=== PATIENT | female | born 1995 | race Caucasian/White ===

== ENCOUNTER 2017-06-29 02:39 | Emergency (ER) | payer SELFPAY ==
[~2017-06-29] VITALS: Ht 175.3 cm; Wt 121.0 kg
[~2017-06-29 02:39] MED LIST: IBUP800T23 PO
[2017-06-29 02:41] VITALS: BP 143/80; PULSE 65; RESP 16; TEMP 97.8; O2SAT 99
[2017-06-29 04:42] LABS: BACTERIA, URINE OCC /hpf; BLOOD, URINE NEG (NEG); GLUCOSE,URINE NEG (NEG); KETONE, URINE NEG (NEG); MUCUS URINE FEW /lpf (OCC); NITRITE,URINE NEG (NEG); PH, URINE 5.5 (5.0-8.5); SQUAMOUS EPITHELIAL CELL URINE 24 /hpf (0-5); URINE COLOR YELLOW (YELLW/STRAW)
[2017-06-29 04:43] LABS: COMMENT (UR) CULT NOT INDICATED; CULTURE IF INDICATED CULT NOT INDICATED
[2017-06-29] MEDS ORDERED: MACR100C2 PO (05:24)
--- NOTE | 2017-06-29 05:25 | PD ---
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 Patient does have prior history of STD. Patient denies . Patient states no menstrual cycle 6 months after being on control pills to regulate menstrual cycle. Patient has history of ovarian cyst. Patient rates pain as 5/10 in intensity. Patient's had no fever no chills no nausea no vomiting no cough no congestion no chest pain no palpitations no generalized abdominal pain no flank pain has experienced some dysuria and frequency and no urgency no hematuria denies abnormal vaginal bleeding but has noted vaginal discharge. Patient has taken no medications for symptoms. Patient decided since she had potentially been exposed to an STD to come to the emergency room at this time. [facility] Past Medical History Narrative Medical Heart murmur ovarian cyst tobacco use; S notes reviewed Cardiovascular Problems: Yes (HEART MURMER) Diminished Hearing: No Immunizations Current: Yes ?: Not : 0 Ovarian Cysts: Yes Past Surgical History Surgical History: No Previous Surgery Social History Alcohol Use: No Tobacco Use: Yes (2-3 CIGS DAILY) Substance Use: No Allergies-Medications (Allergen,Severity, Reaction): Coded Allergies: No Known Allergies (Verified , 06/29/17) Reported Meds & Prescriptions Reported Meds & Active Scripts Active Ibuprofen 800 Mg Tab 800 Mg PO Q8HR PRN Review of Systems Except as stated in HPI: all other systems reviewed are Neg General / Constitutional: No: Fever, Chills HENT: No: Congestion Cardiovascular: No: Chest Pain or Discomfort Respiratory: No: Shortness of Breath Gastrointestinal: Positive: Abdominal Pain, No: Nausea, Vomiting, Diarrhea Genitourinary: Positive: Frequency, Dysuria, Pelvic Pain, Discharge ( suprapubic pressure), No: Decreased Urinary Output, Vaginal Bleeding Musculoskeletal: No: Myalgias, Arthralgias Skin: No Rash Neurologic: No: Weakness Psychiatric: No: Anxiety Hematologic/Lymphatic: No: Lymph Node Enlargement Physical Exam Narrative GENERAL: Well-developed well-nourished female in no acute distress no respiratory distress SKIN: Warm and dry. HEAD: Normocephalic. EYES: No scleral icterus. No injection or drainage. NECK: Supple, trachea midline. No JVD or lymphadenopathy. CARDIOVASCULAR: Regular rate and rhythm without murmurs, gallops, or rubs. RESPIRATORY: Breath sounds equal bilaterally. No accessory muscle use. GASTROINTESTINAL: Abdomen soft, non-tender, nondistended. Pelvic exam: Normal external exam no redness induration or lesions; speculum exam scant white discharge without blood or clots or tissue cervical os poorly visualized; bimanual exam cervical os closed no cervical motion tenderness. MUSCULOSKELETAL: No cyanosis, or edema. BACK: Nontender without obvious deformity. No CVA tenderness. Data Data Last Documented VS Vital Signs Date Time Temp Pulse Resp B/P (MAP) Pulse Ox O2 Delivery O2 Flow Rate FiO2 06/29/17 02:41 97.8 65 16 143/80 (101) 99 Room Air Orders Orders Gc And Chlamydia Pcr (06/29/17 04:20) Wet Prep Profile (06/29/17 04:20) Urinalysis - C+S If Indicated (06/29/17 04:20) Ed Urine Pregnancytest Poc (06/29/17 04:20) Azithromycin Powd Pack (Zithromax Powd P (06/29/17 05:30) Rocephin 250mg Vial Im X 1 (06/29/17 05:30) Ibuprofen (Motrin) (06/29/17 05:30) Labs Laboratory Tests Test 06/29/17 04:21 06/29/17 04:22 Clue Cells (Wet Prep) NONE SEEN Vaginal Trichomonas (Wet Prep) NONE SEEN Vaginal Yeast (Wet Prep) NONE SEEN Urine Color YELLOW Urine Turbidity CLOUDY Urine pH 5.5 Urine Specific [place] 1.024 Urine Protein TRACE mg/dL Urine Glucose (UA) NEG mg/dL Urine Ketones NEG mg/dL Urine Occult Blood NEG Urine Nitrite NEG Urine Bilirubin NEG Urine Urobilinogen LESS THAN 2.0 MG/DL Urine Leukocyte Esterase TRACE Urine RBC 2 /hpf Urine WBC 7 /hpf Urine Squamous Epithelial Cells 24 /hpf Urine Amorphous Sediment RARE Urine Bacteria OCC /hpf Urine Mucus FEW /lpf Microscopic Urinalysis Comment CULT NOT INDICATED MDM Medical Decision Making Medical Screen Exam Complete: Yes Emergency Medical Condition: Yes Medical Record Reviewed: Yes Differential Diagnosis Vaginal discharge, UTI, STI, ; also to consider atypical appendicitis ruptured ovarian cyst Narrative Course Pelvic exam performed specimens collected and sent for resulting in excellent urinalysis specimen collected and [id number] hCG is negative positive white blood cells with greater than 8 squamous epithelial cells culture not indicated Wet prep is negative Patient treated presumptively for STD due to potential recent exposure to STI. 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
[2017-06-29] MEDS ORDERED: IBUPROFEN 800 MG TAB PO ONE (05:30)
[2017-06-29] MEDS ORDERED: cefTRIAXone 250 MG VIAL IM ONE (05:30)
[2017-06-29] MEDS ORDERED: AZITHROMYCIN PWD FOR SUSP 1 GM PACKET PO ONE (05:30)
[2017-06-29] MEDS ORDERED: LIDOCAINE HCL 1% 50 ML VIAL IM ONE (05:45)
[2017-06-29 06:07] LABS: CHLAMYDIA PCR NOT DETECTED (NOT DETECT); NEISSERIA PCR NOT DETECTED (NOT DETECT)
== END 2017-06-29 06:15 | disposition home or self-care (01) ==
LOC: NEPC 02:39
DX: R10.2 Pelvic and perineal pain (principal); R30.0 Dysuria; F17.210 Nicotine dependence, cigarettes, uncomplicated; Z20.2 Contact with and (suspected) exposure to infections with a predominantly sexual mode of transmission
CPT/HCPCS: 81001; 84703; 87210; 87491; 87591; 96372; 99284; J0696

== ENCOUNTER 2017-09-05 06:15 | Emergency (ER) | payer SELFPAY ==
[~2017-09-05] VITALS: Ht 175.3 cm; Wt 119.5 kg
[~2017-09-05 06:15] MED LIST changes: +MACR100C2 PO
[2017-09-05 06:17] VITALS: BP 152/84; PULSE 70; RESP 20; TEMP 97.8; O2SAT 99
[2017-09-05] MEDS ORDERED: MAGICADU2 SWISH-SPIT (06:37)
[2017-09-05] MEDS ORDERED: PENI500T PO (06:37)
[2017-09-05] MEDS ORDERED: IBUP1TAB7 PO (06:37)
[2017-09-05] MEDS ORDERED: KETOROLAC TROMETHAMINE 60 MG/2 ML (IM) VIAL IM ONE (06:45)
--- NOTE | 2017-09-05 06:49 | PD ---
HPI Chief Complaint: Oral / Dental Pain or Problem Time Seen by Provider: 06:35 Travel History International Travel<30 days: No Contact w/Intl Traveler<30days: No Traveled to known affect area: No History of Present Illness HPI 22-year-old female here with dental pain. Symptoms started several days ago. Pain is throbbing, constant, worse when chewing, localized to the right mandibular molars and radiating to the right ear. Denies fevers, chills, cough , congestion, sore throat. No other complaints. PFSH Past Medical History Cardiovascular Problems: Yes (HEART MURMER) Diminished Hearing: No Immunizations Current: Yes Tetanus Vaccination: Unknown Influenza Vaccination: No ?: Unknown LMP: NOT IN AWHILE : 0 Ovarian Cysts: Yes Past Surgical History Surgical History: No Previous Surgery Social History Alcohol Use: No Tobacco Use: Yes (OCC.) Substance Use: No Allergies-Medications (Allergen,Severity, Reaction): Coded Allergies: No Known Allergies (Verified Adverse Reaction, Unknown, 09/05/17) Reported Meds & Prescriptions Reported Meds & Active Scripts Active Magic Mouthwash Adult Liq (Multi-Ingredient Mouthwash/Gargle) 120 Ml Susp 10 Ml SWISH-SPIT ACHS Each 5mL contains: Nystatin 200,000units, Diphenhydramine 4.25mg, Viscous Lidocaine 10mg, Lee syrup 0.8 mL Ibuprofen 800 Mg Tab 800 Mg PO Q6HR PRN Penicillin V Potassium 500 Mg Tab 500 Mg PO Q8H 10 Days Review of Systems General / Constitutional: No: Fever, Chills HENT: Positive: Dental Difficulties Physical Exam Narrative GENERAL: Well-nourished female in no acute distress SKIN: Warm and dry. HEAD: Atraumatic. Normocephalic. EYES: Pupils equal and round. No scleral icterus. No injection or drainage. ENT: No nasal bleeding or discharge. Mucous membranes pink and moist. Dental decay noted to the right mandibular second and third molars which are tender to palpation. NECK: Trachea midline. No JVD. CARDIOVASCULAR: Regular rate and rhythm. No murmur appreciated. RESPIRATORY: No accessory muscle use. Clear to auscultation. Breath sounds equal bilaterally. Data Data Last Documented VS Vital Signs Date Time Temp Pulse Resp B/P (MAP) Pulse Ox O2 Delivery O2 Flow Rate FiO2 09/05/17 06:17 97.8 70 20 152/84 (106) 99 Room Air Orders Orders Ketorolac Inj (Toradol Inj) (09/05/17 06:45) MDM Medical Decision Making Medical Screen Exam Complete: Yes Emergency Medical Condition: Yes Medical Record Reviewed: Yes Differential Diagnosis Dental caries, pulpitis, pericoronitis, periodontal abscess Narrative Course The patient will be discharged with a short course of nonnarcotic analgesics and penicillin, recommended follow-up with a dentist for definitive therapy. Diagnosis Primary Impression: Dental caries Additional Instructions: Medication as prescribed. Follow-up with a dentist for definitive therapy. Return for any emergent medical conditions. Med/Other Pt SpecificInfo: Prescription(s) given Scripts Lpsdhuyu-Czvktxtsokpotqw-Lslajlytg Liq (Magic Mouthwash Adult Liq) 120 Ml Susp 10 ML SWISH-SPIT ACHS for Mouth sores, #120 ML 1 Refill Each 5mL contains: Nystatin 200,000units, Diphenhydramine 4.25mg, Viscous Lidocaine 10mg, Lee syrup 0.8 mL Prov: Nelson Jacques MD 09/05/17 Ibuprofen (Ibuprofen) 800 Mg Tab 800 MG PO Q6HR Y for PAIN, #40 TAB 0 Refills Prov: Nelson Jacques MD 09/05/17 Penicillin V Potassium (Penicillin V Potassium) 500 Mg Tab 500 MG PO Q8H for Infection for 10 Days, #30 TAB 0 Refills Prov: Nelson Jacques MD 09/05/17 Disposition: 01 DISCHARGE HOME Condition: Stable Amador Pretty Sep 05, 2017 06:49
== END 2017-09-05 07:16 | disposition home or self-care (01) ==
LOC: NEPD 06:15
DX: K02.9 Dental caries, unspecified (principal); Z72.0 Tobacco use
CPT/HCPCS: 96372; 99284; J1885

== ENCOUNTER 2017-11-01 20:01 | Emergency (ER) | payer SELFPAY ==
[~2017-11-01 20:01] MED LIST changes: +IBUP1TAB7 PO; -IBUP800T23 PO; -MACR100C2 PO; +MAGICADU2 SWISH-SPIT; +PENI500T PO
[2017-11-01 20:03] VITALS: BP 139/78; PULSE 71; RESP 16; TEMP 97.8; O2SAT 99
[2017-11-01 21:16] LABS: AUTOMATED NEUTROPHIL # 4.3 TH/MM3 (1.8-7.7); BASOPHIL # 0.1 TH/MM3 (0-0.2); BASOPHIL % 0.8 % (0.0-2.0); EOSINOPHIL # 0.2 TH/MM3 (0-0.4); EOSINOPHIL % 2.3 % (0.0-4.0); HEMATOCRIT 38.5 % (35.0-46.0); HEMOGLOBIN 13.6 GM/DL (11.6-15.3); LYMPH % 41.9 % (9.0-44.0); LYMPHOCYTE # 3.6 TH/MM3 (1.0-4.8); MEAN CELL VOLUME 86.6 FL (80.0-100.0); MEAN CORPUSCULAR HEMOGLOBIN 30.7 PG (27.0-34.0); MEAN CORPUSCULAR HGB CONC 35.4 % (32.0-36.0); MEAN PLATELET VOLUME 8.4 FL (7.0-11.0); MONO % 5.3 % (0.0-8.0); MONOCYTE # 0.5 TH/MM3 (0-0.9); NEUT % 49.7 % (16.0-70.0); PLATELET COUNT 207 TH/MM3 (150-450); RED BLOOD COUNT 4.44 MIL/MM3 (4.00-5.30); RED CELL DISTRIBUTION WIDTH 13.9 % (11.6-17.2); WHITE BLOOD COUNT 8.6 TH/MM3 (4.0-11.0)
[2017-11-01 21:18] LABS: BILIRUBIN, URINE NEG (NEG); BLOOD, URINE TRACE (NEG); GLUCOSE,URINE NEG (NEG); KETONE, URINE NEG (NEG); MUCUS URINE FEW /lpf (OCC); NITRITE,URINE NEG (NEG); PH, URINE 5.5 (5.0-8.5); SQUAMOUS EPITHELIAL CELL URINE 1 /hpf (0-5); URINE COLOR YELLOW (YELLW/STRAW); URINE LEUKOCYTE ESTERASE NEG (NEG)
[2017-11-01 21:29] LABS: ALBUMIN 3.9 GM/DL (3.4-5.0); AST (GOT) 27 U/L (15-37); BICARBONATE 26.2 MEQ/L (21.0-32.0); BLOOD UREA NITROGEN 11 MG/DL (7-18); CALCIUM 8.8 MG/DL (8.5-10.1); CHLORIDE 105 MEQ/L (98-107); CREATININE 0.75 MG/DL (0.50-1.00); GLOMERULAR FILTRATION RATE 95 ML/MIN (>89); GLUCOSE,RANDOM 88 MG/DL (74-106); SODIUM (NA) 139 MEQ/L (136-145)
[2017-11-01 21:34] LABS: ALKALINE PHOSPHATASE 31 U/L (45-117); ALT (GPT) 57 U/L (10-53); TOTAL BILIRUBIN ADULT 0.4 MG/DL (0.2-1.0); TOTAL PROTEIN 7.6 GM/DL (6.4-8.2)
[2017-11-01] MEDS ORDERED: SODIUM CHLOR 0.9% 1000 ML INJ 1,000 ML IV SCH (21:43)
[2017-11-01] MEDS ORDERED: KETOROLAC TROMETHAMINE 30 MG/ML (IVP) VIAL IV PUSH ONE (21:45)
[2017-11-01] MEDS ORDERED: SODIUM CHLORIDE 0.9% FLUSH 10 ML FLUSH IV FLUSH PRN (21:45)
--- NOTE | 2017-11-01 21:47 | PD ---
HPI Chief Complaint: Abdominal Pain Time Seen by Provider: 21:41 Travel History International Travel<30 days: No Contact w/Intl Traveler<30days: No Traveled to known affect area: No History of Present Illness HPI 22-year-old female here for evaluation of abdominal pain and right flank pain. The patient reports having this pain for the last couple of days, stating that it started in her right flank, radiated to her right upper abdomen, now is diffuse. There are no modifying factors. Pain is constant, described as jabbing, moderate, intermittently worse at times, no modifying factors. She has had some vomiting and diarrhea. No vaginal discharge. No urinary symptoms. No history of abdominal surgeries. No fevers or chills. No rash. She denies alcohol, tobacco, and illicit drug use. PFSH Past Medical History Medical History: Denies Significant Hx Cardiovascular Problems: Yes (HEART MURMER) Diminished Hearing: No Immunizations Current: Yes Ulcer: Yes Tetanus Vaccination: Unknown Influenza Vaccination: No ?: Not LMP: unsure : 0 Ovarian Cysts: Yes Past Surgical History Surgical History: No Previous Surgery Social History Alcohol Use: No Tobacco Use: No (OCC.) Substance Use: No Allergies-Medications (Allergen,Severity, Reaction): Coded Allergies: No Known Allergies (Verified Adverse Reaction, Unknown, 09/05/17) Reported Meds & Prescriptions Reported Meds & Active Scripts Active Magic Mouthwash Adult Liq (Multi-Ingredient Mouthwash/Gargle) 120 Ml Susp 10 Ml SWISH-SPIT ACHS Each 5mL contains: Nystatin 200,000units, Diphenhydramine 4.25mg, Viscous Lidocaine 10mg, Lee syrup 0.8 mL Ibuprofen 800 Mg Tab 800 Mg PO Q6HR PRN Penicillin V Potassium 500 Mg Tab 500 Mg PO Q8H 10 Days Review of Systems Except as stated in HPI: all other systems reviewed are Neg Physical Exam Narrative GENERAL: Well-developed, well-nourished, overweight, comfortable, no apparent distress. SKIN: Focused skin assessment warm/dry. Tattoos throughout body. No rashes. HEAD: Atraumatic. Normocephalic. EYES: Pupils equal and round. No scleral icterus. No injection or drainage. ENT: Mucous membranes pink and moist. NECK: Trachea midline. No JVD. CARDIOVASCULAR: Regular rate and rhythm. No murmur appreciated. RESPIRATORY: No accessory muscle use. Clear to auscultation. Breath sounds equal bilaterally. GASTROINTESTINAL: Abdomen soft, nondistended. Mild diffuse tenderness without peritoneal signs. No hernias. Normal bowel sounds. MUSCULOSKELETAL: No obvious deformities. No clubbing. No cyanosis. No edema. No CVA tenderness. No midline vertebral step-off or tenderness. NEUROLOGICAL: Awake and alert. No obvious cranial nerve deficits. Motor grossly within normal limits. Normal speech. PSYCHIATRIC: Appropriate mood and affect; insight and judgment normal. Data Data Last Documented VS Vital Signs Date Time Temp Pulse Resp B/P (MAP) Pulse Ox O2 Delivery O2 Flow Rate FiO2 11/01/17 22:54 11/01/17 20:50 18 11/01/17 20:03 97.8 71 99 Room Air Orders Orders Complete Blood Count With Diff (11/01/17 20:14) Comprehensive Metabolic Panel (11/01/17 20:14) Lipase (11/01/17 20:14) Urinalysis - C+S If Indicated (11/01/17 20:14) Ed Urine Pregnancytest Poc (11/01/17 20:14) Iv Access Insert/Monitor (11/01/17 21:43) Ecg Monitoring (11/01/17 21:43) Oximetry (11/01/17 21:43) Sodium Chlor 0.9% 1000 Ml Inj (Ns 1000 M (11/01/17 21:43) Sodium Chloride 0.9% Flush (Ns Flush) (11/01/17 21:45) Ketorolac Inj (Toradol Inj) (11/01/17 21:45) Ct Abd/Pel W Iv Contrast(Rout) (11/01/17 23:11) Labs Laboratory Tests Test 11/01/17 20:49 White Blood Count 8.6 TH/MM3 Red Blood Count 4.44 MIL/MM3 Hemoglobin 13.6 GM/DL Hematocrit 38.5 % Mean Corpuscular Volume 86.6 FL Mean Corpuscular Hemoglobin 30.7 PG Mean Corpuscular Hemoglobin Concent 35.4 % Red Cell Distribution Width 13.9 % Platelet Count 207 TH/MM3 Mean Platelet Volume 8.4 FL Neutrophils (%) (Auto) 49.7 % Lymphocytes (%) (Auto) 41.9 % Monocytes (%) (Auto) 5.3 % Eosinophils (%) (Auto) 2.3 % Basophils (%) (Auto) 0.8 % Neutrophils # (Auto) 4.3 TH/MM3 Lymphocytes # (Auto) 3.6 TH/MM3 Monocytes # (Auto) 0.5 TH/MM3 Eosinophils # (Auto) 0.2 TH/MM3 Basophils # (Auto) 0.1 TH/MM3 CBC Comment DIFF FINAL Differential Comment Urine Color YELLOW Urine Turbidity CLEAR Urine pH 5.5 Urine Specific [place] 1.028 Urine Protein NEG mg/dL Urine Glucose (UA) NEG mg/dL Urine Ketones NEG mg/dL Urine Occult Blood TRACE Urine Nitrite NEG Urine Bilirubin NEG Urine Urobilinogen LESS THAN 2.0 MG/DL Urine Leukocyte Esterase NEG Urine RBC LESS THAN 1 /hpf Urine WBC 1 /hpf Urine Squamous Epithelial Cells 1 /hpf Urine Mucus FEW /lpf Microscopic Urinalysis Comment CULT NOT INDICATED Blood Urea Nitrogen 11 MG/DL Creatinine 0.75 MG/DL Random Glucose 88 MG/DL Total Protein 7.6 GM/DL Albumin 3.9 GM/DL Calcium Level 8.8 MG/DL Alkaline Phosphatase 31 U/L Aspartate Amino Transf (AST/SGOT) 27 U/L Alanine Aminotransferase (ALT/SGPT) 57 U/L Total Bilirubin 0.4 MG/DL Sodium Level 139 MEQ/L Potassium Level 3.8 MEQ/L Chloride Level 105 MEQ/L Carbon Dioxide Level 26.2 MEQ/L Anion Gap 8 MEQ/L Estimat Glomerular Filtration Rate 95 ML/MIN Lipase 134 U/L MDM Medical Decision Making Medical Screen Exam Complete: Yes Emergency Medical Condition: Yes Differential Diagnosis Pyelonephritis, nephrolithiasis, ureterolithiasis, hepatobiliary disease, biliary colic, colitis, peptic ulcer disease, pancreatitis Narrative Course Vital signs show heart rate 71, blood pressure 139/78, pulse ox 99% on room air , oral temp of 97.8F. CBC is unremarkable. CMP is unremarkable. Lipase is 134. UA is not suggestive of UTI. Urine is negative CT abdomen pelvis: I was informed by my nurse that the patient wanted to leave AMA. She has a capacity to make this decision. AMA: The risks of leaving against medical advice without further evaluation treatment were discussed with the patient. These risks include cardiac dysfunction, cardiac dysrhythmia, possible heart attack, possible stroke or . The patient indicated understanding of these risks and appeared to have the capacity to make this decision. Diagnosis Primary Impression: Left against medical advice Additional Impression: Abdominal pain Qualified Codes: R10.9 - Unspecified abdominal pain Disposition: 07 AGAINST MEDICAL ADVICE Condition: Stable Ariel Cordero MD Nov 01, 2017 21:47
== END 2017-11-01 23:23 | disposition left against medical advice (07) ==
LOC: NEPD 20:01
DX: R10.9 Unspecified abdominal pain (principal)
CPT/HCPCS: 80053; 81001; 83690; 84703; 85025; 96374; 99284; J1885; J7030

== ENCOUNTER 2017-12-30 00:29 | Emergency (ER) | payer SELFPAY ==
[~2017-12-30] VITALS: Ht 175.3 cm; Wt 130.0 kg
[2017-12-30 00:56] VITALS: BP 125/81; PULSE 84; RESP 18; TEMP 98.5; O2SAT 99
[2017-12-30 02:10] VITALS: BP 126/57; PULSE 88; RESP 18; O2SAT 98
[2017-12-30] MEDS ORDERED: ZOFR4TAB3 SL (03:13)
[2017-12-30] MEDS ORDERED: MECL-62 PO (03:13)
--- NOTE | 2017-12-30 03:13 | PD ---
HPI Chief Complaint: Dizziness Time Seen by Provider: 03:05 Travel History International Travel<30 days: No Contact w/Intl Traveler<30days: No Traveled to known affect area: No History of Present Illness HPI 22-year-old female complains of dizziness and nausea. Patient states the symptoms started 2 days ago. Patient states that the symptoms worse this evening. Patient states that dizziness is worse with head movement. Patient denies any hearing loss or ringing in the ears. Patient denies any headache. Patient denies any visual change. Patient denies any neck pain. Patient denies any chest pain or shortness of breath. Patient denies abdominal pain. Patient denies any fever chills. Patient denies any dysuria frequency. Patient denies any vaginal discharge or bleeding. PFSH Past Medical History Cardiovascular Problems: Yes (HEART MURMER) Diminished Hearing: No Immunizations Current: Yes Ulcer: Yes ?: Not : 0 Ovarian Cysts: Yes Social History Alcohol Use: No Tobacco Use: No (OCC.) Substance Use: No Allergies-Medications (Allergen,Severity, Reaction): Coded Allergies: No Known Allergies (Verified Adverse Reaction, Unknown, 12/30/17) Reported Meds & Prescriptions Reported Meds & Active Scripts Active Magic Mouthwash Adult Liq (Multi-Ingredient Mouthwash/Gargle) 120 Ml Susp 10 Ml SWISH-SPIT ACHS Each 5mL contains: Nystatin 200,000units, Diphenhydramine 4.25mg, Viscous Lidocaine 10mg, Lee syrup 0.8 mL Ibuprofen 800 Mg Tab 800 Mg PO Q6HR PRN Penicillin V Potassium 500 Mg Tab 500 Mg PO Q8H 10 Days Review of Systems General / Constitutional: No: Fever Eyes: No: Visual changes HENT: Positive: Lightheadedness, No: Headaches Cardiovascular: No: Chest Pain or Discomfort Respiratory: No: Shortness of Breath Gastrointestinal: Positive: Nausea, No: Abdominal Pain Genitourinary: No: Dysuria Musculoskeletal: No: Pain Skin: No Rash Neurologic: No: Weakness Psychiatric: No: Depression Endocrine: No: Polydipsia Hematologic/Lymphatic: No: Easy Bruising Physical Exam Narrative GENERAL: Well-nourished, well-developed patient. SKIN: Focused skin assessment warm/dry. HEAD: Normocephalic. EYES: No scleral icterus. No injection or drainage. Pupils 2 mm equal reactive. NECK: Supple, trachea midline. No JVD or lymphadenopathy. CARDIOVASCULAR: Regular rate and rhythm without murmurs, gallops, or rubs. RESPIRATORY: Breath sounds equal bilaterally. No accessory muscle use. GASTROINTESTINAL: Abdomen soft, non-tender, nondistended. MUSCULOSKELETAL: No cyanosis, or edema. BACK: Nontender without obvious deformity. No CVA tenderness. Neurologic exam normal. Data Data Last Documented VS Vital Signs Date Time Temp Pulse Resp B/P (MAP) Pulse Ox O2 Delivery O2 Flow Rate FiO2 12/30/17 02:10 88 18 126/57 (80) 98 Room Air 12/30/17 00:56 98.5 Orders Orders Meclizine (Antivert) (12/30/17 03:15) Ondansetron Odt (Zofran Odt) (12/30/17 03:15) [facility] Medical Decision Making Medical Screen Exam Complete: Yes Emergency Medical Condition: Yes Interpretation(s) Urine test negative. Differential Diagnosis Differential diagnosis including vertigo, electrolyte imbalance, dehydration. Narrative Course 22-year-old female with dizziness and nausea. Meclizine 25 mg p.o. Zofran 4 mg ODT. Diagnosis Primary Impression: Acute onset of severe vertigo Patient Instructions: General Instructions Additional Instructions: Meclizine and Zofran as directed. Follow-up with personal physician. Return to persistent problem or worse. Off work for 2 days. Med/Other Pt SpecificInfo: Prescription(s) given Scripts Ondansetron Odt (Zofran Odt) 4 Mg Tab 4 MG SL Q6HR Y for Nausea/Vomiting, #10 TAB 0 Refills Prov: Guy Pennington MD 12/30/17 Meclizine (Meclizine) 25 Mg Tab 25 MG PO TID Y for VERTIGO, #21 TAB 0 Refills Prov: Guy Pennington MD 12/30/17 Disposition: 01 DISCHARGE HOME Condition: Stable Guy Pennington MD Dec 30, 2017 03:13
[2017-12-30] MEDS ORDERED: ONDANSETRON ODT 4 MG TAB PO ONE (03:15)
[2017-12-30] MEDS ORDERED: MECLIZINE HCL 25 MG TAB PO ONE (03:15)
== END 2017-12-30 03:18 | disposition home or self-care (01) ==
LOC: NEPC 00:29
DX: R42 Dizziness and giddiness (principal); R11.0 Nausea; Z86.79 Personal history of other diseases of the circulatory system
CPT/HCPCS: 99283

== ENCOUNTER 2018-02-03 21:34 | Emergency (ER) | payer SELFPAY ==
[~2018-02-03] VITALS: Ht 175.3 cm; Wt 130.0 kg
[~2018-02-03 21:34] MED LIST changes: +MECL-62 PO; +ZOFR4TAB3 SL
[2018-02-03 21:39] VITALS: BP 133/69; PULSE 94; RESP 18; TEMP 98.6; O2SAT 98
--- NOTE | 2018-02-03 23:28 | PD ---
HPI Chief Complaint: Abdominal Pain Time Seen by Provider: 23:22 Travel History International Travel<30 days: No Contact w/Intl Traveler<30days: No Traveled to known affect area: No History of Present Illness HPI The patient was seen and examined in the presence of the nurse. This patient complains of nausea vomiting diarrhea and abdominal cramping for 1 week. Cramping is located in the bilateral lower quadrants. She is not having any vaginal bleeding or vaginal discharge. No fever. Severity is moderate. No alleviating factors. No exacerbating factors. 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 PFSH Past Medical History Cardiovascular Problems: Yes (HEART MURMER) Diminished Hearing: No Reproductive: Yes (ovarian cyst) Immunizations Current: Yes Ulcer: Yes Tetanus Vaccination: Unknown Influenza Vaccination: No ?: Not LMP: irregular unsure : 0 Ovarian Cysts: Yes Past Surgical History Surgical History: No Previous Surgery Social History Alcohol Use: No Tobacco Use: No Substance Use: No Allergies-Medications (Allergen,Severity, Reaction): Coded Allergies: aspirin (Verified Allergy, Severe, 02/03/18) stomach ulcer Reported Meds & Prescriptions Reported Meds & Active Scripts Active Zofran Odt (Ondansetron Odt) 4 Mg Tab 4 Mg SL Q6HR PRN Meclizine (Meclizine HCl) 25 Mg Tab 25 Mg PO TID PRN Magic Mouthwash Adult Liq (Multi-Ingredient Mouthwash/Gargle) 120 Ml Susp 10 Ml SWISH-SPIT ACHS Each 5mL contains: Nystatin 200,000units, Diphenhydramine 4.25mg, Viscous Lidocaine 10mg, Lee syrup 0.8 mL Ibuprofen 800 Mg Tab 800 Mg PO Q6HR PRN Penicillin V Potassium 500 Mg Tab 500 Mg PO Q8H 10 Days Review of Systems General / Constitutional: No: Fever Eyes: No: Visual changes HENT: No: Headaches Cardiovascular: No: Chest Pain or Discomfort Respiratory: No: Shortness of Breath Gastrointestinal: Positive: Nausea, Vomiting, Diarrhea, Abdominal Pain Genitourinary: Positive: Pelvic Pain, No: Dysuria Musculoskeletal: No: Pain Skin: No Rash Neurologic: No: Weakness Psychiatric: No: Depression Endocrine: No: Polydipsia Hematologic/Lymphatic: No: Easy Bruising Physical Exam Narrative GENERAL: Morbidly obese , well-developed patient in no apparent distress. SKIN: Focused skin assessment reveals no rash and nodules. Skin is Warm and dry. HEAD: Atraumatic. Normocephalic. EYES: Pupils equal and round. No scleral icterus. No injection or drainage. ENT: No nasal bleeding or discharge. Mucous membranes pink and moist. NECK: Trachea midline. No JVD. CARDIOVASCULAR: Regular rate and rhythm. No murmur appreciated. RESPIRATORY: No accessory muscle use. Clear to auscultation. Breath sounds equal bilaterally. GASTROINTESTINAL: Abdomen soft, non-tender, nondistended. Hepatic and splenic margins not palpable. MUSCULOSKELETAL: No obvious deformities. No clubbing. No cyanosis. No edema. NEUROLOGICAL: Awake and alert. No obvious cranial nerve deficits. Motor grossly within normal limits. Normal speech. PSYCHIATRIC: Appropriate mood and affect; insight and judgment normal. Data Data Last Documented VS Vital Signs Date Time Temp Pulse Resp B/P (MAP) Pulse Ox O2 Delivery O2 Flow Rate FiO2 02/03/18 23:41 98.1 76 114/54 (74) 95 Room Air 02/03/18 21:39 18 Orders Orders Basic Metabolic Panel (Bmp) (02/03/18 23:23) Complete Blood Count With Diff (02/03/18 23:23) NPO (02/03/18 23:23) Sodium Chloride 0.9% Flush (Ns Flush) (02/03/18 23:30) Ed Urine Pregnancytest Poc (02/03/18 23:23) Sodium Chlor 0.9% 1000 Ml Inj (Ns 1000 M (02/03/18 23:30) Ondansetron Odt (Zofran Odt) (02/03/18 23:30) Labs Laboratory Tests Test 02/03/18 23:38 White Blood Count 10.3 TH/MM3 Red Blood Count 4.54 MIL/MM3 Hemoglobin 14.1 GM/DL Hematocrit 39.6 % Mean Corpuscular Volume 87.4 FL Mean Corpuscular Hemoglobin 31.0 PG Mean Corpuscular Hemoglobin Concent 35.5 % Red Cell Distribution Width 13.2 % Platelet Count 208 TH/MM3 Mean Platelet Volume 9.1 FL Neutrophils (%) (Auto) 56.5 % Lymphocytes (%) (Auto) 37.6 % Monocytes (%) (Auto) 4.9 % Eosinophils (%) (Auto) 0.6 % Basophils (%) (Auto) 0.4 % Neutrophils # (Auto) 5.8 TH/MM3 Lymphocytes # (Auto) 3.9 TH/MM3 Monocytes # (Auto) 0.5 TH/MM3 Eosinophils # (Auto) 0.1 TH/MM3 Basophils # (Auto) 0.0 TH/MM3 CBC Comment DIFF FINAL Differential Comment MDM Medical Decision Making Medical Screen Exam Complete: Yes Emergency Medical Condition: Yes Medical Record Reviewed: Yes Differential Diagnosis Gastroenteritis, colitis, ectopic Narrative Course I have reviewed the patient's electronic medical record. Patient is a frequent visitor for minor complaints IV placed and labs sent Gave her dose of Zofran and 1 L normal saline IV bolus Urine Abdomen is soft and benign and nontender CBC is normal Her metabolic profile is pending but will be reviewed prior to discharge. On recheck she is sound asleep and feels much better Zofran prescribed Diagnosis Primary Impression: Nausea vomiting and diarrhea Additional Impression: Abdominal cramps Additional Instructions: The patient was advised to follow up with their physician and return if they worsen. Med/Other Pt SpecificInfo: Prescription(s) given Scripts Ondansetron Odt (Zofran Odt) 4 Mg Tab 4 MG SL Q6HR Y for Nausea/Vomiting, #10 TAB 0 Refills Prov: Chi Ackerman MD 02/04/18 Disposition: 01 DISCHARGE HOME Condition: Stable Chi Ackerman MD February 03, 2018 23:28
[2018-02-03] MEDS ORDERED: SODIUM CHLOR 0.9% 1000 ML INJ 1,000 ML IV ONE (23:30)
[2018-02-03] MEDS ORDERED: ONDANSETRON ODT 4 MG TAB PO ONE (23:30)
[2018-02-03] MEDS ORDERED: SODIUM CHLORIDE 0.9% FLUSH 10 ML FLUSH IV FLUSH PRN (23:30)
[2018-02-03 23:41] VITALS: BP 114/54; PULSE 76; TEMP 98.1; O2SAT 95
[2018-02-04 00:32] LABS: AUTOMATED NEUTROPHIL # 5.8 TH/MM3 (1.8-7.7); BASOPHIL % 0.4 % (0.0-2.0); EOSINOPHIL # 0.1 TH/MM3 (0-0.4); EOSINOPHIL % 0.6 % (0.0-4.0); HEMATOCRIT 39.6 % (35.0-46.0); HEMOGLOBIN 14.1 GM/DL (11.6-15.3); LYMPH % 37.6 % (9.0-44.0); LYMPHOCYTE # 3.9 TH/MM3 (1.0-4.8); MEAN CELL VOLUME 87.4 FL (80.0-100.0); MEAN CORPUSCULAR HGB CONC 35.5 % (32.0-36.0); MEAN PLATELET VOLUME 9.1 FL (7.0-11.0); MONO % 4.9 % (0.0-8.0); MONOCYTE # 0.5 TH/MM3 (0-0.9); NEUT % 56.5 % (16.0-70.0); PLATELET COUNT 208 TH/MM3 (150-450); RED BLOOD COUNT 4.54 MIL/MM3 (4.00-5.30); RED CELL DISTRIBUTION WIDTH 13.2 % (11.6-17.2); WHITE BLOOD COUNT 10.3 TH/MM3 (4.0-11.0)
[2018-02-04] MEDS ORDERED: ZOFR4TAB3 SL (01:07)
[2018-02-04 01:19] LABS: CALCIUM 8.9 MG/DL (8.5-10.1); CREATININE 0.96 MG/DL (0.50-1.00)
== END 2018-02-04 01:52 | disposition home or self-care (01) ==
LOC: NEPD 21:34
DX: R11.2 Nausea with vomiting, unspecified (principal); R19.7 Diarrhea, unspecified; R10.9 Unspecified abdominal pain
CPT/HCPCS: 80048; 84703; 85025; 99283; J7030